=== PATIENT | male | born 1940 | race Caucasian/White ===

== ENCOUNTER → 2016-04-15 | Outpatient (CLI) | payer MEDICARE, OTHER ==
[2014-12-16 10:53] VITALS: BP 146/64
[~2016-04-15] MED LIST: ASPI325T4 PO; ATOR40TA59 PO; LOSA25TA4 PO; LOSA50TA6 PO; METO25TA4 PO; PRAS10TA4 PO; REGADENOSON 0.4 MG/5 ML DISP.SYRIN. IV ONE
--- NOTE | 2016-04-15 10:21 | CARD ---
APPROVED REPORT EXAM: Two-dimensional and M-mode echocardiogram with Doppler and color Doppler. Other Information Quality : Good INDICATION Cardiac Disease: CAD 2D DIMENSIONS RVDd3.0 (2.9-3.5cm)Left Atrium(2D)3.7 (1.6-4.0cm) IVSd1.1 (0.7-1.1cm)Aortic Root(2D)3.0 (2.0-3.7cm) LVDd5.2 (3.9-5.9cm)LVOT Diameter2.0 (1.8-2.4cm) PWd1.0 (0.7-1.1cm)LVDs3.2 (2.5-4.0cm) FS (%) 37.3 %SV85.0 ml LVEF(%)60.0 (>50%) Aortic Valve AoV Peak Bert.117.5cm/sAoV VTI23.4cm AO Peak GR.5.5mmHgLVOT Peak Bert.93.0cm/s AO Mean GR.3mmHgAVA (VMAX)2.47cm2 DOT (VTI)2.70cm2 Mitral Valve MV E Nnbeyqgv11.0cm/sMV DECEL XHOK401hz MV A Syetdcjq28.5cm/sE/A Ratio0.7 Pulmonary Vein S1 Vxvqzeba92.3cm/sD2 Cnlveyau49.6cm/s PVa boubwlgr589docy LEFT VENTRICLE The left ventricle is normal size. There is normal left ventricular wall thickness. The left ventricu lar systolic function is normal and the ejection fraction is within normal range. The Ejection Fracti on is 55-60%. There is normal LV segmental wall motion. Transmitral Doppler flow pattern is Grade I-a bnormal relaxation pattern. Mild diastolic dysfunction. RIGHT VENTRICLE The right ventricle is normal size. The right ventricular systolic function is normal. ATRIA The left atrium size is normal. The right atrium size is normal. The interatrial septum is intact wit h no evidence for an atrial septal defect or patent foramen ovale as noted on 2-D or Doppler imaging. AORTIC VALVE The aortic valve is normal in structure and function. Doppler and Color Flow revealed trace aortic re gurgitation. There is no significant aortic valvular stenosis. MITRAL VALVE The mitral valve is normal in structure and function. There is no evidence of mitral valve prolapse. There is no mitral valve stenosis. Doppler and Color Flow revealed no mitral valve regurgitation note d. TRICUSPID VALVE The tricuspid valve is normal in structure and function. Doppler and Color Flow revealed trace tricus pid regurgitation. There is no tricuspid valve stenosis. PULMONIC VALVE Doppler and Color Flow revealed trace to mild pulmonic valvular regurgitation. There is no pulmonic v alvular stenosis. GREAT VESSELS The aortic root is normal in size. The ascending aorta is normal in size. The IVC is normal in size a nd collapses >50% with inspiration. PERICARDIAL EFFUSION There is no evidence of significant pericardial effusion. Critical Notification Critical Value: No <Conclusion> The left ventricular systolic function is normal and the ejection fraction is within normal range. T he Ejection Fraction is 55-60%. There is normal LV segmental wall motion. Transmitral Doppler flow pattern is Grade I-abnormal relaxation pattern. Mild diastolic dysfunction.
--- NOTE | 2016-04-15 11:01 | RAD ---
APPROVED REPORT Test Type: Pharmacological Stress Nurse/Tech: SALVATORE Dahl RN Test Indications: CAD Cardiac History: CABG, HTN, see EHR Medications: see EHR Medical History: see EHR Resting ECG: SR Resting Heart Rate: 63 bpm Resting Blood Pressure: 128/69mmHg Pretest Chest Pain: No chest pain Nurse/Tech Notes Lungs CTA, heart tones WNL Consent: The procedure was explained to the patient in lay terms. Informed consent was witnessed. [employer] eout was entered into [employer]. History and Stress Test performed by RT Shaina (R) (N) Pharm. Details Pharmacologic stress testing was performed using 0.4mg per 5ml of regadenoson given intravenously ove r 7-10 seconds. Stress Symptoms No chest pain or symptoms. POST EXERCISE Reason for Termination: Infusion complete Max HR: 90 bpm 73% of Maximum Predicted HR: 123 bpm Max Blood Pressure: 139/69mmHg Chest Pain: No. Arrhythmia: No. ST Change: No. INTERPRETATION Stress EKG Conclusion: No acute changes were noted. Imaging Protocol IMAGE PROTOCOL: Rest Tc-99m/stress Tc-99m 1 day Rest: Stress: Viability: Radiopharm.Tc99m CgewwhntpQx21h Sestamibi Fvnx58vUd 33mCi Rest Admin Site:IV - Right AntecubitalAdministrator:RT Shaina (R)(N) Stress Admin Site: IV - Right AntecubitalAdministrator: RT Brittany (R)(N) STRESS DATA End Diast. Vol.80.0mlAv. Heart Rate69.0bpm End Syst. Vol.18.0mlCO Index BSA4.2L/min Myocardial Tdxj647.0gEject. Ugogfjzp68.0% Stress Rates Pk. Fill Rate2.84EDV/secLVtime Pk. Fill 261.63msec Pk. Empty Rate4.60ESV/secLVtime Pk. Buink600.25msec 1/3 Pk. Fill1.29EDV/sec Stress Scores Regional WT1.00Summed WT4.00 Regional WM0.00Summed WM0.00 The rest and stress images show normal perfusion, normal contraction and thickening. LV Perf. Quant 17 Seg. SSS5.00 17 Seg. SRS8.00 17 Seg. SDS1.00 Stress Defect Extent (% LAD)0.00Rest Defect Extent (% LAD)10.60Rev. Defect Extent (% LAD)0.00 Stress Defect Extent (% LCX) 36.30Rest Defect Extent (% LCX)42.50Rev. Defect Extent (% LCX)0.00 Stress Defect Extent (% RCA)8.90Rest Defect Extent (% RCA)0.00Rev. Defect Extent (% RCA)8.90 Stress Defect Extent (% LESIA)8.00Rest Defect Extent (% LESIA)13.70Rev. Defect Extent (% LESIA)1.70 Other Information Quality:Good Risk Assessment: Low Risk Conclusion 1. No evidence of stress induced EKG changes 2. Normal myocardial perfusion study 3. Low risk study 4. normal EF at > 70%
== END | disposition home or self-care (01) ==
LOC: NM 07:21
PROVIDERS: ATTEND Internal Medicine Cardiovascular Disease
DX: I25.10 Atherosclerotic heart disease of native coronary artery without angina pectoris (principal)
CPT/HCPCS: 78452; 93017; 93306; 96374; 96376; A9500; J2785

== ENCOUNTER → 2018-01-20 | Outpatient (CLI) | payer MEDICARE, OTHER ==
[2014-12-16 10:53] VITALS: BP 146/64
[~2018-01-20] MED LIST changes: -ASPI325T4 PO; +ASPI325T8 PO; -LOSA25TA4 PO; +LOSA25TA5 PO; -LOSA50TA6 PO; +LOSA50TA7 PO; -PRAS10TA4 PO; +PRAS10TA9 PO; -REGADENOSON 0.4 MG/5 ML DISP.SYRIN. IV ONE
--- NOTE | 2018-01-20 14:20 | CARD ---
MR#: [id number] Date of Study: 01/20/2018 Ordering Physician: WALLACE LONG, Referring Physician: WALLACE LONG, Tech: Cindy Bhagat APPROVED REPORT EXAM: Two-dimensional and M-mode echocardiogram with Doppler and color Doppler. Other Information Quality : AverageHR: 59bpm Rhythm : NSR INDICATION CAD RISK FACTORS Hyperlipidemia 2D DIMENSIONS RVDd3.0 (2.9-3.5cm)Left Atrium(2D)4.2 (1.6-4.0cm) IVSd1.3 (0.7-1.1cm)Aortic Root(2D)3.7 (2.0-3.7cm) LVDd5.9 (3.9-5.9cm)LVOT Diameter2.3 (1.8-2.4cm) PWd1.3 (0.7-1.1cm)LVDs3.9 (2.5-4.0cm) FS (%) 33.7 %SV108.7 ml LVEF(%)61.7 (>50%) Aortic Valve AoV Peak Bert.109.5cm/sAoV VTI22.6cm AO Peak GR.4.8mmHgLVOT Peak Bert.100.3cm/s LVOT VTI 24.31cmAO Mean GR.2mmHg DOT (VMAX)2.35qm6IRT (VTI)4.39cm2 Mitral Valve MV E Tgfbztgc38.7cm/sMV DECEL XJYQ536vo MV A Itmxdpgd37.6cm/sMV PZY795rp E/A Ratio0.7MVA (PHT)1.93cm2 TDI E/Lateral E'5.3E/Medial E'6.4 Tricuspid Valve TR P. Bobieoed311uj/sRAP SYUECKZN7kqQc TR Peak Gr.83tiAhQCMD04yeVp Pulmonary Vein S1 Erckppcy21.4cm/sD2 Rqcqftya03.8cm/s PVa ujjqnsmx898ywsu LEFT VENTRICLE The left ventricle is normal size. There is borderline to mild concentric left ventricular hypertroph y. The left ventricular systolic function is normal and the ejection fraction is within normal range. The Ejection Fraction is 50-55%. There is normal LV segmental wall motion. Transmitral Doppler flow pattern is Grade I-abnormal relaxation pattern. RIGHT VENTRICLE The right ventricle is normal size. There is normal right ventricular wall thickness. The right ventr icular systolic function is normal. ATRIA The left atrium size is normal. The right atrium size is normal. The interatrial septum is intact wit h no evidence for an atrial septal defect or patent foramen ovale as noted on 2-D or Doppler imaging. AORTIC VALVE The aortic valve is normal in structure and function. Doppler and Color Flow revealed trace aortic re gurgitation. There is no significant aortic valvular stenosis. MITRAL VALVE The mitral valve is normal in structure and function. There is no mitral valve stenosis. Doppler and Color Flow revealed no mitral valve regurgitation noted. TRICUSPID VALVE The tricuspid valve is not well visualized. Doppler and Color Flow revealed trace tricuspid regurgita tion. PULMONIC VALVE The pulmonic valve is not well visualized. Doppler and Color Flow revealed trace pulmonic valvular re gurgitation. GREAT VESSELS The aortic root is normal in size. Normal pulmonary venous flow (Doppler). The IVC was not visualized . PERICARDIAL EFFUSION There is no evidence of significant pericardial effusion. Critical Notification Critical Value: No <Conclusion> The left ventricle is normal size. The left ventricular systolic function is normal and the ejection fraction is within normal range. The Ejection Fraction is 50-55%. There is borderline to mild concentric left ventricular hypertrophy. There is no significant aortic valvular stenosis. Doppler and Color Flow revealed trace aortic regurgitation. Doppler and Color Flow revealed no mitral valve regurgitation noted. Doppler and Color Flow revealed trace tricuspid regurgitation. Signed by : Dell Dave MD Electronically Approved : 01/20/2018 14:19:21
== END | disposition home or self-care (01) ==
LOC: ECHO 12:28
PROVIDERS: ATTEND Internal Medicine Cardiovascular Disease
DX: I25.10 Atherosclerotic heart disease of native coronary artery without angina pectoris (principal); E78.5 Hyperlipidemia, unspecified; Z87.891 Personal history of nicotine dependence
CPT/HCPCS: 93306

== ENCOUNTER → 2019-02-17 | Outpatient (CLI) | payer MEDICARE, OTHER ==
[2014-12-16 10:53] VITALS: BP 146/64
[~2019-02-17] MED LIST changes: +LOSA-73 PO; -LOSA25TA5 PO; +LOSA25TA54 PO; -LOSA50TA7 PO; +REGADENOSON 0.4 MG/5 ML DISP.SYRIN. IV ONE
--- NOTE | 2019-02-17 11:14 | RAD ---
MR#: [id number] Date of Study: 02/17/2019 Ordering Physician: WALLACE LONG, Referring Physician: PAUL CUBA Tech: LG Hoyos ARRT (R) (N) APPROVED REPORT Test Type: Pharmacological Stress Nurse/Tech: Kristi Mooney R.N. Test Indications: CAD Cardiac History: cardiac stents, CAD Medications: See Electronic Medical Record Medical History: See Electronic Medical Record Resting ECG: SR Resting Heart Rate: 64 bpm Resting Blood Pressure: 132/65mmHg Pretest Chest Pain: No chest pain Nurse/Tech Notes S1S2, lungs CTA Consent: The procedure was explained to the patient in lay terms. Informed consent was witnessed. [employer] eout was entered into [employer]. History and Stress Test performed by RT Roc MerrittR) (N) Pharm. Details Pharmacologic stress testing was performed using 0.4mg per 5ml of regadenoson given intravenously ove r 7-10 seconds. Stress Symptoms SOA, "weird" feeling POST EXERCISE Reason for Termination: Infusion complete Max HR: 99 bpm Max Blood Pressure: 154/67mmHg Blood Pressure response to exercise: Normal blood pressure response during stress. Heart Rate response to exercise: wnl Chest Pain: No. Arrhythmia: No. ST Change: No. INTERPRETATION Stress EKG Conclusion: Baseline EKG showed sinus rhythm. No ischemic changes at peak stress. No arr hythmias. Imaging Protocol IMAGE PROTOCOL: Rest Tc-99m/stress Tc-99m 1 day Rest: Stress: Viability: Radiopharm.Tc99m RrecjyeqlVm26x Sestamibi Emks06yQl 34mCi Img Date 02/17/2019 02/17/2019 Inj-Img Rijx62lfh. 60min. Rest Admin Site:IV - Right HandAdministrator:LG Hoyos ARRT (R)(N) Stress Admin Site: IV - Right HandAdministrator: RT Waylon Merritt)(N) STRESS DATA End Diast. Vol.71.0mlLVEDV index BSA32.0ml End Syst. Vol.15.0mlLVESV index BSA7.0ml Myocardial Ugoh004.0gEject. Kumfvsee41.0% Stress Scores Regional WT0.00Summed WT0.00 Regional WM0.00Summed WM0.00 Study quality was good. Left Ventricular size was Normal at Rest and Stress. Lung uptake was . Left Ventricular ejection fraction is 81%. The rest and stress images show normal perfusion, normal contraction and thickening. LV Perf. Quant 17 Seg. SSS2.00 17 Seg. SRS1.00 17 Seg. SDS1.00 Stress Defect Extent (% LAD)0.00Rest Defect Extent (% LAD)0.00Rev. Defect Extent (% LAD)0.00 Stress Defect Extent (% LCX) 33.80Rest Defect Extent (% LCX)21.30Rev. Defect Extent (% LCX)5.00 Stress Defect Extent (% RCA)0.00Rest Defect Extent (% RCA)0.00Rev. Defect Extent (% RCA)0.00 Stress Defect Extent (% LESIA)5.90Rest Defect Extent (% LESIA)3.70Rev. Defect Extent (% LESIA)0.90 Conclusion 1. Regadenoson cardioisotope stress test did not show any evidence of ischemia or infarct. 2. Normal left ventricular systolic function with ejection fraction calculated at 81%. 3. Low risk for cardiac events. Signed by : Wallace Long, Electronically Approved : 02/17/2019 11:14:31
== END | disposition home or self-care (01) ==
LOC: NM 07:43
PROVIDERS: ATTEND Internal Medicine Cardiovascular Disease
DX: I25.10 Atherosclerotic heart disease of native coronary artery without angina pectoris (principal); Z95.5 Presence of coronary angioplasty implant and graft
CPT/HCPCS: 78452; 93017; A9500; J2785

== ENCOUNTER → 2019-08-11 | Outpatient (CLI) | payer MEDICARE, OTHER ==
[2014-12-16 10:53] VITALS: BP 146/64
[~2019-08-11] MED LIST changes: -REGADENOSON 0.4 MG/5 ML DISP.SYRIN. IV ONE
--- NOTE | 2019-08-11 10:56 | CARD ---
MR#: [id number] Date of Study: 08/11/2019 Ordering Physician: WALLACE LONG, Referring Physician: WALLACE LONG Tech: Pallavi Dunn RDCS APPROVED REPORT EXAM: Two-dimensional and M-mode echocardiogram with Doppler and color Doppler. Other Information Quality : Good INDICATION Cardiac Disease: CAD 2D DIMENSIONS RVDd3.4 (2.9-3.5cm)Left Atrium(2D)3.5 (1.6-4.0cm) IVSd1.1 (0.7-1.1cm)Aortic Root(2D)3.3 (2.0-3.7cm) LVDd4.6 (3.9-5.9cm)LVOT Diameter2.2 (1.8-2.4cm) PWd1.0 (0.7-1.1cm)LVDs3.4 (2.5-4.0cm) FS (%) 25.0 %LVEF(%)50.0 (>50%) Aortic Valve AoV Peak Bert.109.0cm/Ari Peak GR.8.0mmHg LVOT Peak Bert.112.0cm/sLVOT VTI 23.00cm AO Mean GR.3mmHgAVA (VTI)3.70cm2 Tricuspid Valve TR P. Uvtxdqot505yx/sRAP TRNDZXTA1pzEy TR Peak Gr.67qtIlHAQR08orDq LEFT VENTRICLE The left ventricle is normal size. There is normal left ventricular wall thickness. Left ventricle sy stolic function is low normal. The Ejection Fraction is 50-55%. There is normal LV segmental wall mot ion. Transmitral Doppler flow pattern is Grade I-abnormal relaxation pattern. RIGHT VENTRICLE The right ventricle is normal size. The right ventricular systolic function is normal. ATRIA The left atrium size is normal. The right atrium size is normal. The interatrial septum is intact wit h no evidence for an atrial septal defect or patent foramen ovale as noted on 2-D or Doppler imaging. AORTIC VALVE The aortic valve is calcified but opens well. Doppler and Color Flow revealed no significant aortic r egurgitation. There is no significant aortic valvular stenosis. MITRAL VALVE The mitral valve is normal in structure and function. There is no evidence of mitral valve prolapse. There is no mitral valve stenosis. Doppler and Color Flow revealed no mitral valve regurgitation note d. TRICUSPID VALVE The tricuspid valve is normal in structure and function. Doppler and Color Flow revealed physiologica l tricuspid regurgitation. The PA pressure was estimated at 25 mmHg. There is no tricuspid valve sten osis. PULMONIC VALVE The pulmonic valve is not well visualized. Doppler and Color Flow revealed mild pulmonic valvular reg urgitation. There is no pulmonic valvular stenosis. GREAT VESSELS The aortic root is normal in size. The ascending aorta is mildly dilated at 3.4 cm. The IVC is normal in size and collapses >50% with inspiration. PERICARDIAL EFFUSION There is no evidence of significant pericardial effusion. Critical Notification Critical Value: No <Conclusion> Left ventricle systolic function is low normal. The Ejection Fraction is 50-55%. There is normal LV segmental wall motion. The ascending aorta is mildly dilated at 3.4 cm. Signed by : Preston Ellis, Electronically Approved : 08/11/2019 10:56:21
== END | disposition home or self-care (01) ==
LOC: ECHO 10:01
PROVIDERS: ATTEND Internal Medicine Cardiovascular Disease
DX: I08.8 Other rheumatic multiple valve diseases (principal); I77.810 Thoracic aortic ectasia; I25.10 Atherosclerotic heart disease of native coronary artery without angina pectoris
CPT/HCPCS: 93306

== ENCOUNTER → 2020-08-28 | Outpatient (CLI) | payer MEDICARE, OTHER ==
[2014-12-16 10:53] VITALS: BP 146/64
--- NOTE | 2020-08-28 15:19 | RAD ---
MR#: [id number] Date of Study: 08/28/2020 Ordering Physician: WALLACE LONG, Referring Physician: PAUL CUBA Tech: LG Hoyos ARRT (R) (N) APPROVED REPORT Test Type: Exercise Stress Nurse/Tech: MARIAELENA BLACK Test Indications: CAD Cardiac History: CAD, STENTS, HTN- SEE EMR Medications: SEE EMR Medical History: SEE EMR Resting ECG: SR Resting Heart Rate: 66 bpm Resting Blood Pressure: 138/70mmHg Pretest Chest Pain: No chest pain Nurse/Tech Notes S1,S2, RRR, LUNGS CTA, DENIED CP OR SOA. VSS. NO COMPLAINTS. Consent: The procedure was explained to the patient in lay terms. Informed consent was witnessed. [employer] eout was entered into [employer]. History and Stress Test performed by RT Shaina (Meme) (N) Stress Symptoms PT TOLERATED TREADMILL TEST WELL, DENIED SOA OR CP. VSS. POST EXERCISE Reason for Termination: Reached target heart rate Target HR: 119 Max HR: 130 bpm 109% of Maximum Predicted HR: 130 bpm Exercise duration: 5:30 min:sec, 2 Stage Exercise capacity: 7.0METs Max Blood Pressure: 162/59mmHg Blood Pressure response to exercise: Normal blood pressure response during stress. Heart Rate response to exercise: WNL Chest Pain: No. Arrhythmia: . NO SIGNIFICANT CHANGES, ARTIFACT NOTED, RETURNED TO BASELINE AT REST. INTERPRETATION Stress EKG Conclusion: No evidence of stress induced EKG changes. Imaging Protocol IMAGE PROTOCOL: Rest Tc-99m/stress Tc-99m 1 day Rest: Stress: Viability: Radiopharm.Tc99m PeverggnpFy53s Sestamibi Dose10.5mCi 31mCi Img Date 08/28/2020 08/28/2020 Inj-Img Orro36wpz. 60min. Rest Admin Site:IV - Right AntecubitalAdministrator:LG Hoyos ARRT (R)(N) Stress Admin Site: IV - Right AntecubitalAdministrator: Truong Skinner, RT (R)(N) STRESS DATA End Diast. Vol.81.0mlAv. Heart Rate70.0bpm End Syst. Vol.16.0mlCO Index BSA4.5L/min Myocardial Yziv548.0gEject. Xfbzsmko67.0% Stress Rates Pk. Fill Rate2.71EDV/secLVtime Pk. Fill 272.83msec Pk. Empty Rate4.87ESV/secLVtime Pk. Dqsic276.80msec /3 Pk. Fill0.87EDV/sec Stress Scores Regional WT0.00Summed WT0.00 Regional WM0.00Summed WM0.00 The rest and stress images show normal perfusion, normal contraction and thickening. LV Perf. Quant 17 Seg. SSS3.00 17 Seg. SRS1.00 17 Seg. SDS3.00 Stress Defect Extent (% LAD)0.00Rest Defect Extent (% LAD)0.00Rev. Defect Extent (% LAD)0.00 Stress Defect Extent (% LCX) 31.30Rest Defect Extent (% LCX)0.00Rev. Defect Extent (% LCX)15.00 Stress Defect Extent (% RCA)0.00Rest Defect Extent (% RCA)0.00Rev. Defect Extent (% RCA)0.00 Stress Defect Extent (% LESIA)6.10Rest Defect Extent (% LESIA)0.00Rev. Defect Extent (% LESIA)3.30 Other Information Quality:Good Risk Assessment: Low Risk Conclusion 1. No evidence of EKG changes with stress testing. 2. Normal perfusion at stress/rest. 3. Low risk study. 4. EF > 60%. Signed by : Preston Ellis, Electronically Approved : 08/28/2020 15:19:20
== END ==
LOC: NM 10:00
PROVIDERS: ATTEND Internal Medicine Cardiovascular Disease
DX: I25.10 Atherosclerotic heart disease of native coronary artery without angina pectoris (principal); I10 Essential (primary) hypertension
CPT/HCPCS: 78452; 93017; A9500